=== PATIENT | male | born 1960 ===

== ENCOUNTER 2018-06-11 07:15 | Inpatient (IN) | payer OTHER ==
[~2018-06-11] VITALS: Ht 165.1 cm; Wt 81.2 kg
[2018-06-11] MEDS ORDERED: METFORMIN HCL500 MG PO (10:45)
[2018-06-11] MEDS ORDERED: COZAAR100 MG PO (10:45)
[2018-06-18] MEDS ORDERED: ELIQUIS2.5 MG PO (16:56)
[2018-06-18] MEDS ORDERED: DUI500 PO (16:56)
[2018-06-18] MEDS ORDERED: PERCOCET 5-3251 EACH PO (16:56)
== END 2018-06-18 19:04 | disposition home or self-care (01) | DRG 470 ==
LOC: O/R 06-16 06:00 → SURG 06-16 06:00
PROVIDERS: Orthopaedic Surgery
PROC: 0SR90JZ Replacement of Right Hip Joint with Synthetic Substitute, Open Approach (ICD-10-PCS; principal; 2018-06-16 07:00)
DX: M16.11 Unilateral primary osteoarthritis, right hip (principal); D62 Acute posthemorrhagic anemia; M70.61 Trochanteric bursitis, right hip; I10 Essential (primary) hypertension; E11.9 Type 2 diabetes mellitus without complications